=== PATIENT | male | born 1960 | race Caucasian/White ===

== ENCOUNTER 2017-05-13 09:50 | Emergency (ER) | payer OTHER ==
[2017-05-13] MEDS ORDERED: ONDANSETRON 4 MG TAB.RAPDIS PO ONE (10:02)
[2017-05-13] MEDS ORDERED: MORPHINE SULFATE 10 MG/ML INJ IM ONE (10:02)
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
[2017-05-13] MEDS ORDERED: DIPH/PERTUSS(ACELL)/TETANUS VAC/PF 0.5 ML SYR (>=10YO) IM ONE (11:56)
[2017-05-13] MEDS ORDERED: IBUPROFEN 800 MG TABLET PO ONE (11:56)
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
[2017-05-13 12:41] VITALS: BP 116/72
== END 2017-05-13 12:40 | disposition home or self-care (01) ==
LOC: ER 09:50
DX: S60.512A Abrasion of left hand, initial encounter (principal); S29.012A Strain of muscle and tendon of back wall of thorax, initial encounter; M54.9 Dorsalgia, unspecified; V87.7XXA Person injured in collision between other specified motor vehicles (traffic), initial encounter
CPT/HCPCS: 99284; 96372; 90471; 71020; 90715; S0119; J2270